=== PATIENT | female | born 1975 | race Caucasian/White ===

== ENCOUNTER 2017-07-27 18:47 | Emergency (ER) | payer MEDICAID ==
[~2017-07-27] VITALS: Ht 157.5 cm; Wt 82.1 kg
[2017-07-27 18:54] VITALS: Ht 157.5 cm; Wt 82.1 kg
[2017-07-27 22:14] LABS: CALCIUM 9.3 mg/dL (8.5-10.1); CARBON DIOXIDE 26.2 mmol/L (21-32); CHLORIDE SERUM 100 mmol/L (98-107); CREATININE SERUM 0.6 mg/dL (0.6-1.0); GFR1 > 60 mL/min; GLUCOSE SERUM 101 mg/dL (74-106); POTASSIUM SERUM 3.9 mmol/L (3.5-5.1); SODIUM SERUM 138 mmol/L (136-145)
[2017-07-27 22:19] LABS: ALBUMIN 4.3 g/dL (3.4-5.0); ALKALINE PHOSPHATASE 79 U/L (46-116); ALT/SGPT 104 U/L (14-59); AST/SGOT 121 U/L (15-37); BILIRUBIN TOTAL 0.44 mg/dL (0.20-1.00); LIPASE 96 IU/L (73-393)
[2017-07-27 22:21] LABS: TOTAL PROTEIN, SERUM 9.5 g/dL (6.4-8.2)
[2017-07-27 22:28] LABS: PLATELET COUNT 290 x10^3mcL (130-400); RED CELL DISTRIBUTION WIDTH 13.3 % (11.5-14.5)
[2017-07-27 22:29] LABS: BASOPHIL % 3.7 % (0-2)
[2017-07-28 00:30] VITALS: BP 123/68
== END 2017-07-28 00:30 | disposition home or self-care (01) ==
LOC: ED 18:47
PROVIDERS: Emergency Medicine
DX: K59.00 Constipation, unspecified (principal); K76.0 Fatty (change of) liver, not elsewhere classified
CPT/HCPCS: 36415